=== PATIENT | male | born 1985 | race Two or more races ===

== ENCOUNTER 2018-06-04 09:26 | Emergency (ER) | payer OTHER ==
[~2018-06-04] VITALS: Ht 188 cm; Wt 81.6 kg
[2018-06-04 09:45] VITALS: BP 123/88
--- NOTE | 2018-06-04 09:57 | PHYS DOC ---
Adult General Chief Complaint Chief Complaint: HAND PROBLEM HPI HPI 32-year-old male presents with homemade tattoo gun needle stick. 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 He was searching a cell when his hand pushed across a homemade tattoo gun. The needle on the gun appears to his glove and punctured into his hand. He had minimal bleeding, but he knows the needle went "all the way in". This is not a standard tattoo appliance and is therefore not properly cleansed. He is unsure if it had wet or dry blood on it. This is a worker's comp case. The patient is here for labs and to consider HIV prophylaxis. Patient denies any other needle sticks. He denies HIV or hepatitis prior to this. He denies fever or chills. He has consented to HIV testing. His tetanus is not up-to-date. Review of Systems Review of Systems Constitutional: Denies fever or chills [] Eyes: Denies change in visual acuity, redness, or eye pain [] HENT: Denies nasal congestion or sore throat [] Respiratory: Denies cough or shortness of breath [] Cardiovascular: No additional information not addressed in HPI [] GI: Denies abdominal pain, nausea, vomiting, bloody stools or diarrhea [] : Denies dysuria or hematuria [] Musculoskeletal: Denies back pain or joint pain [] Integument: Left hand puncture wound[] Neurologic: Denies headache, focal weakness or sensory changes [] Endocrine: Denies polyuria or polydipsia [] All other systems were reviewed and found to be within normal limits, except as documented in this note. Physical Exam Physical Exam Constitutional: Well developed, well nourished, no acute distress, non-toxic appearance. [] HENT: Normocephalic, atraumatic, bilateral external ears normal, oropharynx moist, no oral exudates, nose normal. [] Eyes: PERRLA, EOMI, conjunctiva normal, no discharge. [] Neck: Normal range of motion, no tenderness, supple, no stridor. [] Cardiovascular:Heart rate regular rhythm, no murmur [] Lungs & Thorax: Bilateral breath sounds clear to auscultation [] Abdomen: Bowel sounds normal, soft, no tenderness, no masses, no pulsatile masses. [] Skin: Warm, dry, no erythema, no rash. No obvious puncture wound of the left palm. [] Back: No tenderness, no CVA tenderness. [] Extremities: No tenderness, no cyanosis, no clubbing, ROM intact, no edema. [] Neurologic: Alert and oriented X 3, normal motor function, normal sensory function, no focal deficits noted. [] Psychologic: Affect normal, judgement normal, mood normal. [] EKG EKG [] Radiology/Procedures Radiology/Procedures [] Course & Med Decision Making Course & Med Decision Making Pertinent Labs and Imaging studies reviewed. (See chart for details) Patient's labs are unremarkable. I will give him Augmentin for infection prophylaxis. The patient requested HIV prophylaxis. I have provided prescriptions for these medications. I believe the patient is at low risk given the circumstances, but it is impossible to know if there was blood on the end of the instrument. The patient will decide if he wants to take these medications. I have advised that everything decides he should inform his Worker' s Comp case management coordinator. Patient is stable for discharge at this time.[] Dragon Disclaimer Dragon Disclaimer This electronic medical record was generated, in whole or in part, using a voice recognition dictation system. Departure Departure: Referrals: PCP,NO (PCP) Scripts Amoxicillin/Potassium Clav (AUGMENTIN 875-125 TABLET) 1 Each Tablet 1 TAB PO BID, #14 TAB Prov: XOCHILT RAMÍREZ DO 06/04/18 Dolutegravir Sodium (TIVICAY) 50 Mg Tablet 50 MG PO DAILY for 30 Days, #30 TAB Prov: XOCHILT RAMÍREZ DO 06/04/18 Emtricitabine/Tenofovir (TRUVADA 200 MG-300 MG TABLET) 1 Each Tablet 1 TAB PO DAILY, #30 TAB 0 Refills Prov: XOCHILT RAMÍREZ DO 06/04/18 XOCHILT RAMÍREZ DO Jun 04, 2018 09:57
[2018-06-04] MEDS ORDERED: DIPHTH,PERTUSS(ACELL),TET TOX 0.5 ML DISP.SYRIN. VAX IM ONE (10:00)
[2018-06-04 10:47] LABS: BASO % 1 % (0-3); EOS # 0.1 x10^3/uL (0.0-0.7); EOS % 1 % (0-3); HEMATOCRIT 48.7 % (39.0-53.0); HEMOGLOBIN 17.1 g/dL (13.0-17.5); LYMPH # 1.3 x10^3/uL (1.0-4.8); LYMPH % 25 % (24-48); MEAN CORPUSCULAR HEMOGLOBIN 30 pg (25-35); MEAN CORPUSCULAR HGB CONC 35 g/dL (31-37); MEAN CORPUSCULAR VOLUME 85 fL (79-100); MONO # 0.4 x10^3/uL (0.0-1.1); MONO % 8 % (0-9); NEUT # 3.2 x10^3uL (1.8-7.7); NEUT % 65 % (31-73); PLATELET COUNT 187 x10^3/uL (140-400); RED BLOOD COUNT 5.71 x10^6/uL (4.30-5.70); RED CELL DISTRIBUTION WIDTH 14.4 % (11.5-14.5)
[2018-06-04] MEDS ORDERED: DIPH,PERTUSS(ACELL),TET PED/PF 0.5 ML VIAL VAX IM ONE (10:57)
[2018-06-04 11:00] LABS: ALBUMIN 4.1 g/dL (3.4-5.0); ALBUMIN/GLOBULIN RATIO 1.1 (1.0-1.7); CALCIUM 9.4 mg/dL (8.5-10.1); CREATININE 0.9 mg/dL (0.7-1.3); GFR 96.6; POTASSIUM 4.1 mmol/L (3.5-5.1); TOTAL BILIRUBIN 1.1 mg/dL (0.2-1.0); TOTAL PROTEIN 7.8 g/dL (6.4-8.2)
[2018-06-04] MEDS ORDERED: DOLU50TA PO (11:14)
[2018-06-04] MEDS ORDERED: EMTR1TAB8 PO (11:14)
[2018-06-04] MEDS ORDERED: AMOX1TAB61 PO (11:15)
== END 2018-06-04 11:22 | disposition home or self-care (01) ==
LOC: ER 09:26
DX: S61.432A Puncture wound without foreign body of left hand, initial encounter (principal); W46.1XXA Contact with contaminated hypodermic needle, initial encounter; Y93.89 Activity, other specified; Y92.148 Other place in prison as the place of occurrence of the external cause; Y99.0 Civilian activity done for income or pay
CPT/HCPCS: 36415; 80053; 85025; 86703; 86705; 86709; 86803; 87340; 90471; 90715; 99284-25